=== PATIENT | male | born 1980 | race Caucasian/White ===

== ENCOUNTER 2017-08-25 08:51 | Emergency (ER) | payer SELFPAY ==
[~2017-08-25] VITALS: Ht 175.3 cm; Wt 70.0 kg
[2017-08-25 08:54] VITALS: BP 110/70; PULSE 71; RESP 12; TEMP 97.5; O2SAT 99
[2017-08-25 09:43] LABS: BLOOD, URINE NEG (NEG); COMMENT (UR) CULT NOT INDICATED; CULTURE IF INDICATED CULT NOT INDICATED; GLUCOSE,URINE NEG (NEG); KETONE, URINE NEG (NEG); NITRITE,URINE NEG (NEG); URINE COLOR YELLOW (YELLW/STRAW)
--- NOTE | 2017-08-25 10:16 | PD ---
HPI Chief Complaint: Complaint Time Seen by Provider: 09:46 Travel History International Travel<30 days: No Contact w/Intl Traveler<30days: No Traveled to known affect area: No History of Present Illness HPI 36-year-old male arrives to the ER with a complaint of hematuria intermittently. Dysuria with burning reported. He had a workup on an outside facility revealed to me by his significant other which shows a mass in the bladder on CT however he has not followed up with urology. He denies testicular perineal pain. No fever nausea or vomiting. No similar prior episodes. Severity moderate. PFSH Social History Alcohol Use: No Tobacco Use: Yes Substance Use: Yes (marijuana) Allergies-Medications (Allergen,Severity, Reaction): Coded Allergies: No Known Allergies (Verified Allergy, Unknown, 08/25/17) Reported Meds & Prescriptions Reported Meds & Active Scripts Active No Active Prescriptions or Reported Medications Review of Systems Except as stated in HPI: all other systems reviewed are Neg General / Constitutional: No: Fever Physical Exam Narrative GENERAL: 36-year-old male no acute distress GENITOURINARY: Deferred per patient's request. Risks discussed SKIN: Warm and dry. HEAD: Atraumatic. Normocephalic. EYES: Pupils equal and round. No scleral icterus. No injection or drainage. ENT: No nasal bleeding or discharge. Mucous membranes pink and moist. NECK: Trachea midline. No JVD. CARDIOVASCULAR: Regular rate and rhythm. RESPIRATORY: No accessory muscle use. Clear to auscultation. Breath sounds equal bilaterally. GASTROINTESTINAL: Abdomen soft, non-tender, nondistended. Hepatic and splenic margins not palpable. MUSCULOSKELETAL: Extremities without clubbing, cyanosis, or edema. No obvious deformities. NEUROLOGICAL: Awake and alert. No obvious cranial nerve deficits. Motor grossly within normal limits. Five out of 5 muscle strength in the arms and legs. Normal speech. PSYCHIATRIC: Appropriate mood and affect; insight and judgment normal. Data Data Last Documented VS Vital Signs Date Time Temp Pulse Resp B/P (MAP) Pulse Ox O2 Delivery O2 Flow Rate FiO2 08/25/17 10:29 08/25/17 08:54 97.5 71 12 99 Vital signs reviewed Orders Orders Urinalysis - C+S If Indicated (08/25/17 09:08) Ed Discharge Order (08/25/17 10:16) Mandatory Outpatient Referral (08/25/17 10:16) Labs Laboratory Tests Test 08/25/17 09:10 Urine Color YELLOW Urine Turbidity CLEAR Urine pH 6.0 Urine Specific [place] 1.010 Urine Protein NEG mg/dL Urine Glucose (UA) NEG mg/dL Urine Ketones NEG mg/dL Urine Occult Blood NEG Urine Nitrite NEG Urine Bilirubin NEG Urine Urobilinogen LESS THAN 2.0 MG/DL Urine Leukocyte Esterase NEG Urine WBC LESS THAN 1 /hpf Microscopic Urinalysis Comment CULT NOT INDICATED MDM Medical Decision Making Medical Screen Exam Complete: Yes Emergency Medical Condition: Yes Differential Diagnosis Prostatitis, UTI, renal failure, bladder mass Narrative Course Bladder mass on CT should be evaluated by urology. Follow-up plans discussed in great detail the patient and the patient's significant other. All questions answered. Patient understands that he needs to obtain the records from [place] in order for the urology appointment to be of utility. Diagnosis Primary Impression: Hematuria Qualified Codes: R31.9 - Hematuria, unspecified Additional Impression: Bladder mass Referrals: Patient Assistance Program CALL THIS NUMBER TO SET UP INSURANCE IN CASE A SURGERY IS REQUIRED Urologist Additional Instructions: You have a choice when it comes to health care, and we are glad that you chose [facility]. Hopefully, we have met your expectations on today's visit. You are welcome to return to [facility] at any time, as we are committed to meeting the health care needs of our community. PLEASE OBTAIN YOUR RECORDS FROM THE ED IN [place] AND TAKE THOSE WITH YOU TO YOUR UROLOGY APPOINTMENT. THE RESULTS OF THAT ED WORK UP WILL BE NECESSARY TO PLAN THE APPROPRIATE COURSE OF TREATMENT FOR YOUR COMPLAINT. Med/Other Pt SpecificInfo: No Change to Meds Scripts No Active Prescriptions or Reported Meds Disposition: 01 DISCHARGE HOME Condition: Ravin Silverman MD Aug 25, 2017 10:16
== END 2017-08-25 10:30 | disposition home or self-care (01) ==
LOC: NEPD 08:51
DX: N32.9 Bladder disorder, unspecified (principal); R31.9 Hematuria, unspecified; Z72.0 Tobacco use
CPT/HCPCS: 81001; 99283